=== PATIENT | female | born 1985 | race African-American/Black ===

== ENCOUNTER 2018-07-16 12:06 | Emergency (ER) | payer SELFPAY ==
--- NOTE | 2018-07-16 12:59 | EDM.PDOC ---
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 The patient said that she used to be on Depo-Provera in the past and has been off it for 2 years and is currently on no contraception but is not very sexually active. She denies although she is not using contraception. The patient said that she had a normal period in May and then in June her menses started on June 22 and it has been on and off since that time until today. She says sometimes she will pass clots and other times she will not. She's using a total of 3 pads a day. Her periods usually last 7 days and they are sensitive with heavy bleeding and cramping. She tells me in the past she had tests for some irregular heavy bleeding at the [facility] and she is not sure what those results are she was told that she might have cysts or tumors. She is not familiar with the word fibroid. She's eating and drinking normally and has no chest pain shortness of breath dizziness or lightheadedness no urinary complaints no abdominal pain and no vomiting or diarrhea. Review of systems: As per history of present illness and below otherwise all systems reviewed and negative. Past medical history: As per history of present illness and as reviewed below otherwise noncontributory. Surgical history: As per history of present illness and as reviewed below otherwise noncontributory. Social history: No reported history of drug or alcohol abuse. Family history: As per history of present illness and as reviewed below otherwise noncontributory. Physical exam: General: Well-developed well-nourished overweight female who is nontoxic and vital signs are noted by me. HEENT: Atraumatic, normocephalic, negative for conjunctival pallor or scleral icterus, mucous membranes moist, throat clear, neck supple, nontender, trachea midline. Lungs: Clear to auscultation, breath sounds equal bilaterally, chest nontender. Heart: S1S2, regular rate and rhythm no overt murmurs Abdomen: Soft, nondistended, nontender. Negative for masses or hepatosplenomegaly. Negative for costovertebral tenderness. Pelvis: Stable nontender. Genitourinary: External genitalia are within normal limits and there is only a scant amount of blood in the vault on bimanual exam. There is no cervical motion tenderness and the uterus is bulky about 6 weeks size and is nontender but there is no adnexal tenderness or masses appreciated either. The patient's pad in her underwear had some dark blood on it but it was only a mild amount and there were no clots seen. Rectal: Deferred. Extremities: Atraumatic, negative for cords or calf pain. Neurovascular unremarkable. Neuro: Awake, alert, oriented. Cranial nerves II through XII unremarkable. Cerebellum unremarkable. Motor and sensory unremarkable throughout. Exam nonfocal. Diagnostics: CBC orthostatic vitals UA UCG Therapeutics: Patient is aware that we are limited here to assist with menstrual cycle irregularity and medications and/or further workup would need to be directed in an outpatient setting by one of our providers. I will give her resources available both at our institution and at [facility]. Impression: Metromenorrhagia Definitive disposition and diagnosis as appropriate pending reevaluation and review of above. - Related Data Allergies Allergy/AdvReac Type Severity Reaction Status Date / Time No Known Allergies Allergy Verified 07/16/18 13:33 Home Meds: Home Meds metFORMIN HCl [Metformin HCl] 1,000 mg PO DAILY 07/16/18 [History] ED ROS GENERAL - Review of Systems Review Of Systems: ROS reveals no pertinent complaints other than HPI. ED EXAM, GENERAL - Physical Exam Exam: See Below (See dictation) Course - Vital Signs Last Recorded V/S: Orthostatic Blood Pressure [ 118/81 Standing] Orthostatic Blood Pressure [ 114/80 Sitting] Orthostatic Blood Pressure [ 117/79 Supine] - Orders/Labs/Meds Orders: Active Orders 24 hr Category Date Time Status Orthostatic Vital Signs [RC] ASDIRECTED Care 07/16/18 12:59 Active HCG QUALITATIVE,URINE [URCHEM] Stat Lab 07/16/18 13:01 Ordered UA W/MICROSCOPIC [URIN] Stat Lab 07/16/18 12:47 Ordered Labs: Laboratory Tests 07/16/18 07/16/18 07/16/18 Range/Units 12:47 13:01 13:16 WBC 5.91 (4.0-11.0) K/uL RBC 4.19 L (4.30-5.90) M/uL Hgb 12.7 (12.0-16.0) g/dL Hct 38.5 (36.0-46.0) % MCV 91.9 (80.0-98.0) fL MCH 30.3 (27.0-32.0) pg MCHC 33.0 (31.0-37.0) g/dL RDW Std Deviation 41.5 (28.0-62.0) fl RDW Coeff of William 12 (11.0-15.0) % Plt Count 198 (150-400) K/uL MPV 11.10 (7.40-12.00) fL Neut % (Auto) 53.7 (48.0-80.0) % Lymph % (Auto) 38.7 (16.0-40.0) % [place] % (Auto) 6.9 (0.0-15.0) % Eos % (Auto) 0.7 (0.0-7.0) % Baso % (Auto) 0.0 (0.0-1.5) % Neut # (Auto) 3.2 (1.4-5.7) K/uL Lymph # (Auto) 2.3 (0.6-2.4) K/uL [place] # (Auto) 0.4 (0.0-0.8) K/uL Eos # (Auto) 0.0 (0.0-0.7) K/uL Baso # (Auto) 0.0 (0.0-0.1) K/uL Nucleated RBC % 0.0 /100WBC Nucleated RBCs # 0 K/uL Urine Color YELLOW Urine Appearance SLT CLOUDY Urine pH 6.0 (5.0-8.0) Ur Specific [place] 1.015 (1.001-1.035) Urine Protein NEGATIVE (NEGATIVE) mg/dL Urine Glucose (UA) >=1000 (NEGATIVE) mg/dL Urine Ketones NEGATIVE (NEGATIVE) mg/dL Urine Occult Blood LARGE H (NEGATIVE) Urine Nitrite NEGATIVE (NEGATIVE) Urine Bilirubin NEGATIVE (NEGATIVE) Urine Urobilinogen 0.2 (<2.0) EU/dL Ur Leukocyte Esterase NEGATIVE (NEGATIVE) Urine RBC 40-45 (0-2/HPF) Urine WBC 0-2 (0-5/HPF) Ur Epithelial Cells OCCASIONAL (NONE-FEW) Urine Bacteria RARE (NEGATIVE) Urine HCG, Qual NEGATIVE (NEGATIVE) Departure - Departure Time of Disposition: 13:45 Disposition: Home, Self-Care 01 Condition: Good Clinical Impression: Metrorrhagia - Discharge Information Referrals: PCP,None [Primary Care Provider] - Forms: ED Department Discharge Additional Instructions: The following information is given to patients seen in the emergency department who are being discharged to home. This information is to outline your options for follow-up care. We provide all patients seen in our emergency department with a follow-up referral. The need for follow-up, as well as the timing and circumstances, are variable depending upon the specifics of your emergency department visit. If you don't have a primary care physician on staff, we will provide you with a referral. We always advise you to contact your personal physician following an emergency department visit to inform them of the circumstance of the visit and for follow-up with them and/or the need for any referrals to a consulting specialist. The emergency department will also refer you to a specialist when appropriate. This referral assures that you have the opportunity for followup care with a specialist. All of these measure are taken in an effort to provide you with optimal care, which includes your followup. Under all circumstances we always encourage you to contact your private physician who remains a resource for coordinating your care. When calling for followup care, please make the office aware that this follow-up is from your recent emergency room visit. If for any reason you are refused follow-up, please contact the [facility] emergency department at and ask to speak to the emergency department charge nurse. [facility] [address] [place] [id number] [facility] [address] [place], [place] [address]e. [address] [address] Please connect with one of our local clinics for further care and evaluation as we discussed. Hydration rest and continue to monitor her bleeding. Return to ER as needed and as discussed - My Orders Last 24 Hours: My Active Orders 07/16/18 12:47 UA W/MICROSCOPIC [URIN] Stat 07/16/18 12:59 Orthostatic Vital Signs [RC] ASDIRECTED 07/16/18 13:01 HCG QUALITATIVE,URINE [URCHEM] Stat - Assessment/Plan Last 24 Hours: My Active Orders 07/16/18 12:47 UA W/MICROSCOPIC [URIN] Stat 07/16/18 12:59 Orthostatic Vital Signs [RC] ASDIRECTED 07/16/18 13:01 HCG QUALITATIVE,URINE [URCHEM] Stat
== END 2018-07-16 13:58 | disposition home or self-care (01) ==
LOC: MW.ED 12:06
DX: N92.1 Excessive and frequent menstruation with irregular cycle (principal); Z79.84 Long term (current) use of oral hypoglycemic drugs
CPT/HCPCS: 36415; 81001; 81025; 85025; 99284

== ENCOUNTER 2019-06-03 13:09 | Emergency (ER) | payer SELFPAY ==
--- NOTE | 2019-06-03 13:20 | EDM.PDOC ---
ED HPI GENERAL MEDICAL PROBLEM - General Chief Complaint: General Stated Complaint: SWOLLEN FEET Time Seen by Provider: 06/03/19 13:13 Source of Information: Reports: Patient History Limitations: Reports: No Limitations - History of Present Illness INITIAL COMMENTS - FREE TEXT/NARRATIVE: HISTORY AND PHYSICAL: History of present illness: Patient is a 34-year-old female who presents to the emergency room with complaints of bilateral foot pain and swelling. She states over the past 2 days she has pain with ambulating and has noticed that her feet are swollen. She is concerned as she is a type II diabetic. She denies any recent injury, trauma or falls. Denies any fever, chills, headache, change in vision, syncope or near syncope. Denies any chest pain, back pain, shortness of breath or cough. Denies any GI or symptoms. Patient has been eating and drinking appropriately. Review of systems: As per history of present illness and below otherwise all systems reviewed and negative. Past medical history: As per history of present illness and as reviewed below otherwise noncontributory. Surgical history: As per history of present illness and as reviewed below otherwise noncontributory. Social history: See social history for further information Family history: As per history of present illness and as reviewed below otherwise noncontributory. Physical exam: General: Well-developed and well-nourished 34-year-old -Finnish female. Alert and oriented. Nontoxic appearing and in no acute distress. HEENT: Atraumatic, normocephalic, pupils equal and reactive bilaterally, negative for conjunctival pallor or scleral icterus, mucous membranes moist, TMs normal bilaterally, throat clear, neck supple, nontender, trachea midline. No drooling or trismus noted. No meningeal signs. No hot potato voice noted. Lungs: Clear to auscultation, breath sounds equal bilaterally, chest nontender. Heart: S1S2, regular rate and rhythm without overt murmur Abdomen: Soft, nondistended, nontender. Negative for masses or hepatosplenomegaly. Negative for costovertebral tenderness. Pelvis: Stable nontender. Genitourinary: Deferred. Rectal: Deferred. Skin: Intact, warm, dry. No lesions or rashes noted. Extremities: Ambulatory into the emergency room, although states it is painful to bilateral feet with weightbearing. Atraumatic, moves all extremities per self without difficulty or deficits, +1 trace edema to bilateral feet negative for cords or calf pain. Capillary refill less than 3 seconds. Strong pedal pulses bilaterally. Neurovascular unremarkable. Neuro: Awake, alert, oriented. Cranial nerves II through XII unremarkable. Cerebellum unremarkable. Motor and sensory unremarkable throughout. Exam nonfocal. Notes: Lab work is unremarkable. Vital signs are stable and have been reviewed by me. Supportive care measures were reviewed and discussed. Voices understanding and is agreeable to plan of care. Denies any further questions or concerns at this time. Diagnostics: CBC, CMP, BNP, uric acid Therapeutics: None Prescription: Diclofenac Impression: Edema Plan: 1. Decrease your sodium intake (Salt, processed foods, etc...) 2. Keep your feet elevated when able. 3. Tylenol and/or ibuprofen as needed for pain management. 4. Follow-up with your primary care provider as we discussed. Return to the ED as needed and as discussed. Definitive disposition and diagnosis as appropriate pending reevaluation and review of above. 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 ED EXAM, GENERAL - Physical Exam Exam: See Below (See dictation) Course - Vital Signs Last Recorded V/S: Last Vital Signs Temp 96.7 F 06/03/19 13:22 Pulse 75 06/03/19 13:22 Resp 15 06/03/19 13:22 BP 128/90 06/03/19 13:22 Pulse Ox 96 06/03/19 13:22 - Orders/Labs/Meds Labs: Laboratory Tests 06/03/19 06/03/19 06/03/19 Range/Units 13:28 13:28 13:28 WBC 5.91 (4.0-11.0) K/uL RBC 3.87 L (4.30-5.90) M/uL Hgb 11.9 L (12.0-16.0) g/dL Hct 37.2 (36.0-46.0) % MCV 96.1 (80.0-98.0) fL MCH 30.7 (27.0-32.0) pg MCHC 32.0 (31.0-37.0) g/dL RDW Std Deviation 43.7 (28.0-62.0) fl RDW Coeff of William 13 (11.0-15.0) % Plt Count 197 (150-400) K/uL MPV 10.60 (7.40-12.00) fL Neut % (Auto) 57.6 (48.0-80.0) % Lymph % (Auto) 33.8 (16.0-40.0) % [place] % (Auto) 8.1 (0.0-15.0) % Eos % (Auto) 0.5 (0.0-7.0) % Baso % (Auto) 0.0 (0.0-1.5) % Neut # (Auto) 3.4 (1.4-5.7) K/uL Lymph # (Auto) 2.0 (0.6-2.4) K/uL [place] # (Auto) 0.5 (0.0-0.8) K/uL Eos # (Auto) 0.0 (0.0-0.7) K/uL Baso # (Auto) 0.0 (0.0-0.1) K/uL Nucleated RBC % 0.0 /100WBC Nucleated RBCs # 0 K/uL Sodium 139 (136-145) mmol/L Potassium 3.9 (3.5-5.1) mmol/L Chloride 103 (98-107) mmol/L Carbon Dioxide 28.7 (21.0-32.0) mmol/L BUN 12 (7.0-18.0) mg/dL Creatinine 0.6 (0.6-1.0) mg/dL Est Cr Clr Drug Dosing 98.75 mL/min Estimated GFR (MDRD) > 60.0 ml/min Glucose 143 H (74-106) mg/dL Uric Acid 3.9 (2.6-7.2) mg/dL Calcium 10.0 (8.5-10.1) mg/dL Total Bilirubin 0.2 (0.2-1.0) mg/dL AST 16 (15-37) IU/L ALT 24 (14-63) IU/L Alkaline Phosphatase 61 (46-116) U/L B-Natriuretic Peptide 16 (<100) PG/ML Total Protein 7.8 (6.4-8.2) g/dL Albumin 3.4 (3.4-5.0) g/dL Globulin 4.4 H (2.6-4.0) g/dL Albumin/Globulin Ratio 0.8 L (0.9-1.6) Departure - Departure Time of Disposition: 14:16 Disposition: Home, Self-Care 01 Clinical Impression: Edema - Discharge Information Instructions: Edema, [id number] Referrals: PCP,Unknown [Primary Care Provider] - Forms: ED Department Discharge Additional Instructions: The following information is given to patients seen in the emergency department who are being discharged to home. This information is to outline your options for follow-up care. We provide all patients seen in our emergency department with a follow-up referral. The need for follow-up, as well as the timing and circumstances, are variable depending upon the specifics of your emergency department visit. If you don't have a primary care physician on staff, we will provide you with a referral. We always advise you to contact your personal physician following an emergency department visit to inform them of the circumstance of the visit and for follow-up with them and/or the need for any referrals to a consulting specialist. The emergency department will also refer you to a specialist when appropriate. This referral assures that you have the opportunity for follow-up care with a specialist. All of these measure are taken in an effort to provide you with optimal care, which includes your follow-up. Under all circumstances we always encourage you to contact your private physician who remains a resource for coordinating your care. When calling for follow-up care, please make the office aware that this follow-up is from your recent emergency room visit. If for any reason you are refused follow-up, please contact the [facility] Emergency Department at and asked to speak to the emergency department charge nurse. [facility] [address] [place] [address] [facility] [address] [place] [id number] 1. Decrease your sodium intake (Salt, processed foods, etc...) 2. Keep your feet elevated when able. 3. Tylenol and/or ibuprofen as needed for pain management. 4. Follow-up with your primary care provider as we discussed. Return to the ED as needed and as discussed.
[2019-06-03 14:11] LABS: CHLORIDE,CL 103 mmol/L (98-107); SODIUM,NA 139 mmol/L (136-145)
== END 2019-06-03 14:34 | disposition home or self-care (01) ==
LOC: MW.ED 13:09
DX: R60.0 Localized edema (principal); E11.9 Type 2 diabetes mellitus without complications; Z79.84 Long term (current) use of oral hypoglycemic drugs
CPT/HCPCS: 36415; 80053; 83880; 84550; 85025; 99283